=== PATIENT | female | born 1995 | race Caucasian/White ===

== ENCOUNTER 2017-03-31 10:42 | Inpatient (IN) | payer BC ==
[2017-03-31] MEDS ORDERED: Carboprost Tromethamine 250 MCG/1 ML Amp IM PRN (12:23)
[2017-03-31] MEDS ORDERED: Nalbuphine 10 MG/1 ML Vial IVPUSH PRN (12:23)
[2017-03-31] MEDS ORDERED: Water For Irrigation,Sterile 1,000 ML Container IRR PRN (12:23)
[2017-03-31] MEDS ORDERED: Methylergonovine 0.2 MG/1 ML Amp IM PRN (12:23)
[2017-03-31] MEDS ORDERED: Butorphanol 1 MG/ML SDV IVPUSH PRN (12:23)
[2017-03-31] MEDS ORDERED: Sodium Chloride 0.9% 2.5 ML Syringe FLUSH PRN (12:23)
[2017-03-31] MEDS ORDERED: Lidocaine 1% 50 ML MDV INJECT PRN (12:23)
[2017-03-31] MEDS ORDERED: Sodium Chloride 0.9% 10 ML Syringe FLUSH PRN (12:23)
[2017-03-31] MEDS ORDERED: Misoprostol 200 MCG Tab PO PRN (12:23)
[2017-03-31] MEDS ORDERED: Oxytocin/Lactated Ringers 30 UNIT/500 ML BAG IV SCH ×2 (12:30→18:00)
[2017-03-31] MEDS ORDERED: Ampicillin 2 GM in Sodium Chloride 0.9% 100 ML IV ONE (12:30)
[2017-03-31] MEDS: Lactated Ringers 1,000 ML IV SCH ×4 (13:13→22:56)
[2017-03-31] MEDS: Ampicillin 1 GM in Sodium Chloride 0.9% 50 ML IV SCH ×2 (17:19→21:23)
[2017-03-31] MEDS ORDERED: fentaNYL 100 MCG/2 ML SDV ONE (20:49)
[2017-03-31] MEDS ORDERED: Ropivacaine 0.2% 2 MG/ML 20 ML SDV ONE (20:50)
--- NOTE | 2017-03-31 21:29 | PCM.PREANE ---
Preanesthetic Assessment - Anesthesia/Transfusion/Family Hx Anesthesia History: No Prior Anesthesia Family History of Anesthesia Reaction: No Transfusion History: No Prior Transfusion(s) - Review of Systems General: No Symptoms Pulmonary: No Symptoms Cardiovascular: No Symptoms Gastrointestinal: No Symptoms Neurological: No Symptoms Other: Reports: None - Physical Assessment Pulse: 104 O2 Sat by Pulse Oximetry: 99 Respiratory Rate: 24 Blood Pressure: 111/78 Height: 5 ft 5 in Weight: 71.668 kg ASA Class: 2 Mental Status: Alert & Oriented x3 Airway Class: Mallampati = 1 Dentition: Reports: Normal Dentition Thyro-Mental Finger Breadths: 3 ROM/Head Extension: Full Lungs: Clear to Auscultation, Normal Respiratory Effort Cardiovascular: Regular Rate, Regular Rhythm - Lab Values: Laboratory Last Values WBC 15.76 K/uL (4.0-11.0) H 03/31/17 12:39 RBC 3.99 M/uL (4.30-5.90) L 03/31/17 12:39 Hgb 13.1 g/dL (12.0-16.0) 03/31/17 12:39 Hct 37.1 % (36.0-46.0) 03/31/17 12:39 MCV 93.0 fL (80.0-98.0) 03/31/17 12:39 MCH 32.8 pg (27.0-32.0) H 03/31/17 12:39 MCHC 35.3 g/dL (31.0-37.0) 03/31/17 12:39 RDW Std Deviation 45.2 fl (28.0-62.0) 03/31/17 12:39 RDW Coeff of Issac 13 % (11.0-15.0) 03/31/17 12:39 Plt Count 285 K/uL (150-400) 03/31/17 12:39 MPV 10.90 fL (7.40-12.00) 03/31/17 12:39 Nucleated RBC % 0.0 /100WBC 03/31/17 12:39 Nucleated RBCs # 0 K/uL 03/31/17 12:39 Blood Type O POSITIVE 03/31/17 12:39 Antibody Screen NEGATIVE 03/31/17 12:39 - Allergies Allergies/Adverse Reactions: Allergies Allergy/AdvReac Type Severity Reaction Status Date / Time clarithromycin [From Biaxin] Allergy Rash Verified 03/31/17 12:22 - Blood Blood Available: No - Acknowledgements Anesthesia Type Planned: Epidural Pt an Appropriate Candidate for the Planned Anesthesia: Yes Alternatives and Risks of Anesthesia Discussed w Pt/Guardian: Yes Pt/Guardian Understands and Agrees with Anesthesia Plan: Yes PreAnesthesia Questionnaire [employer] History: Reports: - SUBSTANCE USE Smoking Status *Q: Never Smoker Second Hand Smoke Exposure: No Recreational Drug Use History: No - CURRENT (IN HOUSE) MEDS Current Meds: Current Medications Butorphanol Tartrate (Stadol) 1 mg IVPUSH Q1H PRN PRN Reason: Pain Carboprost Tromethamine (Hemabate Ds) 250 mcg IM ASDIRECTED PRN PRN Reason: Post Hemorrhage Ampicillin Sodium 1 gm/ Sodium (Chloride) 50 mls @ 100 mls/hr IV Q4H [facility]I Last Admin: 03/31/17 21:23 Dose: 100 mls/hr Lactated Ringer's (Ringers, Lactated) 1,000 mls @ 150 mls/hr IV ASDIRECTED ZI Last Admin: 03/31/17 21:13 Dose: 150 mls/hr Oxytocin/Lactated Ringer's (Pitocin In Lr 30 Units/500 Ml) 30 unit in 500 mls @ 2 mls/hr IV TITRATE ZI; 2 MUNITS/MIN PRN Reason: Protocol Last Titration: 03/31/17 20:12 Dose: 4 munits/min, 4 mls/hr Lidocaine HCl (Xylocaine 1%) 50 ml INJECT .ONCE PRN PRN Reason: Laceration repair Methylergonovine Maleate (Methergine) 0.2 mg IM ASDIRECTED PRN PRN Reason: Post Hemorrhage Misoprostol (Cytotec) 200 mcg PO .ONCE PRN PRN Reason: Post Hemorrhage Nalbuphine HCl (Nubain) 10 mg IVPUSH Q1H PRN PRN Reason: Pain (severe 7-10) Sodium Chloride (Saline Flush) 10 ml FLUSH ASDIRECTED PRN PRN Reason: Keep Vein Open Sodium Chloride (Saline Flush) 2.5 ml FLUSH ASDIRECTED PRN PRN Reason: Keep Vein Open Sterile Water (Sterile Water For Irrigation) 1,000 ml IRR ASDIRECTED PRN PRN Reason: delivery Discontinued Medications Fentanyl (Sublimaze) Confirm Administered Dose 100 mcg .ROUTE .STK-MED ONE Stop: 03/31/17 20:50 Last Admin: 03/31/17 21:11 Dose: 100 mcg Ampicillin Sodium 2 gm/ Sodium (Chloride) 100 mls @ 200 mls/hr IV ONETIME ONE Stop: 03/31/17 12:59 Last Admin: 03/31/17 13:13 Dose: 200 mls/hr Oxytocin/Lactated Ringer's (Pitocin In Lr 30 Units/500 Ml) 30 unit in 500 mls @ 999 mls/hr IV TITRATE ZI PRN Reason: 999 MUNITS/MIN Stop: 03/31/17 13:01 Ropivacaine/Fentanyl/NS (Fentanyl 2 Mcg-Ropiv 0.2%-Ns) Confirm Administered Dose 100 mls @ as directed .ROUTE .STK-MED ONE Stop: 03/31/17 20:50 Ropivacaine (Naropin 0.2%) Confirm Administered Dose 20 ml .ROUTE .STK-MED ONE Stop: 03/31/17 20:51 Last Admin: 03/31/17 21:12 Dose: 10 ml
[2017-04-01] MEDS ORDERED: Lanolin 100% Cream 7 GM Tube TOP PRN (01:16)
[2017-04-01] MEDS ORDERED: Bisacodyl 10 MG Supp RECTAL PRN (01:16)
[2017-04-01] MEDS ORDERED: Benzocaine/Menthol 20%-0.5% Spray 78 GM Cannister TOP PRN (01:16)
[2017-04-01] MEDS ORDERED: Witch Hazel Medicated Pads 40/Jar TOP PRN (01:16)
[2017-04-01] MEDS ORDERED: Methylergonovine 0.2 MG/1 ML Amp IM PRN (01:16)
[2017-04-01] MEDS ORDERED: oxyCODONE 5 MG Tab PO PRN (01:16)
--- NOTE | 2017-04-01 01:46 | OR ---
SURGEON: Summer Dalton M.D. DATE OF PROCEDURE: 04/01/2017 PREOPERATIVE DIAGNOSES: A 40 and 3/7th-week intrauterine , active spontaneous labor. POSTOPERATIVE DIAGNOSES: A 40 and 3/7th-week intrauterine , active spontaneous labor. PROCEDURE PERFORMED: Pitocin augmentation, term spontaneous vaginal delivery with repair of second- degree laceration. ANESTHESIA: Epidural. ESTIMATED BLOOD LOSS: Less than 300 mL. FINDINGS: Live born female, score 8 and 9. Weight is pending at the time of dictation. Placenta spontaneous, Schultze intact with 3 vessels. Second-degree perineal laceration repaired. COMPLICATIONS: None known. DISPOSITION: Mother and baby are in LDRP in good condition. INDICATIONS: This is a 22-year-old female G1, P0. She presented at 40 and 3/7th weeks' gestation in active spontaneous labor. She progressed to 4 cm dilatation with slow progress thereafter, therefore, Pitocin augmentation was initiated up to a maximum of 6 milliunits per minute. She had received 3 doses of ampicillin for group B strep prophylaxis. At this point, she was 5 to 6 cm dilated. Artificial rupture of membranes was performed, clear fluid was noted. Within 2 hours, she was complete. DESCRIPTION OF PROCEDURE: With the patient in dorsal lithotomy position, the patient pushed over 3 contractions to a 5+ station, at which time the head was delivered spontaneously and atraumatically over the perineum with support with subsequent delivery of the infant's shoulders and body without any difficulty. The infant was handed to the mother in the presence of the nurse attending delivery. The is a liveborn female, score 8 and 9. Weight is pending at the time of this dictation. After the cord had ceased to pulsate, it was doubly clamped and cut. Cord blood was collected for cord ABGs as well as routine cord blood sampling. After the delivery of the , Pitocin was initiated to assist with delivery of the placenta, which was delivered spontaneously, Schultze intact with 3 vessels. Upon inspection of the pelvis and perineum, there were no periurethral, vaginal sidewall, cervical, or rectal lacerations. There was a small second-degree perineal laceration, which was repaired using 2-0 Caprosyn for the vaginal mucosa in a running locked fashion, a single deep stitch on the perineum to reapproximate the deep tissue, and subcuticular sutures using the 3- 0 Caprosyn to reapproximate the skin. Final sponge, needle, and instrument count were correct. There were no known complications. The and mother remained in LDRP in good condition. Sponge, needle, and instrument count were correct. MERLE HARRISON /[id number]
[2017-04-01] MEDS: Ibuprofen 800 MG Tab PO PRN ×3 (04:06→19:42)
[2017-04-01] MEDS: Docusate Sodium 100 MG Cap PO PRN (07:42)
--- NOTE | 2017-04-01 08:42 | PCM.PNPP ---
<Meliza Haas - Last Filed: 04/01/17 08:40> - General Info Date of Service: 04/01/17 Functional Status: Reports: Pain Controlled, Tolerating Diet, Ambulating, Urinating - Review of Systems General: Denies: Fever, Weakness, Fatigue Pulmonary: Denies: Shortness of Breath, Pleuritic Chest Pain, Cough Cardiovascular: Denies: Chest Pain, Palpitations, Dyspnea on Exertion Gastrointestinal: Denies: Abdominal Pain Genitourinary: Denies: Dysuria Psychiatric: Reports: No Symptoms - General Info Date of Service: 04/01/17 - Patient Data Vital Signs - Most Recent: Last Vital Signs Temp 36.3 C 04/01/17 08:00 Pulse 78 04/01/17 08:00 Resp 17 04/01/17 08:00 BP 117/59 L 04/01/17 08:00 Pulse Ox 96 04/01/17 08:00 Weight - Most Recent: 71.668 kg Lab Results - Last 24 Hours: Laboratory Results - last 24 hr 03/31/17 03/31/17 Range/Units 12:39 12:39 WBC 15.76 H (4.0-11.0) K/uL RBC 3.99 L (4.30-5.90) M/uL Hgb 13.1 (12.0-16.0) g/dL Hct 37.1 (36.0-46.0) % MCV 93.0 (80.0-98.0) fL MCH 32.8 H (27.0-32.0) pg MCHC 35.3 (31.0-37.0) g/dL RDW Std Deviation 45.2 (28.0-62.0) fl RDW Coeff of Issac 13 (11.0-15.0) % Plt Count 285 (150-400) K/uL MPV 10.90 (7.40-12.00) fL Nucleated RBC % 0.0 /100WBC Nucleated RBCs # 0 K/uL Blood Type O POSITIVE Antibody Screen NEGATIVE Med Orders - Current: Current Medications Acetaminophen (Tylenol Extra Strength) 1,000 mg PO Q4H PRN PRN Reason: Pain Benzocaine/Menthol (Dermoplast Pain Relief 20%-0.5% [place]) 78 gm TOP ASDIRECTED PRN PRN Reason: Perineal Comfort Measure Bisacodyl (Dulcolax) 10 mg RECTAL .ONCE PRN PRN Reason: Constipation Docusate Sodium (Colace) 100 mg PO BID PRN PRN Reason: Constipation Last Admin: 04/01/17 07:42 Dose: 100 mg Emollient Ointment (Lansinoh Hpa) 0 gm TOP ASDIRECTED PRN PRN Reason: Sore Nipples Ibuprofen (Motrin) 800 mg PO Q6H PRN PRN Reason: Pain Last Admin: 04/01/17 04:06 Dose: 800 mg Methylergonovine Maleate (Methergine) 0.2 mg IM .ONCE PRN PRN Reason: Excessive Vaginal Bleeding Oxycodone HCl (Oxycodone) 5 mg PO Q2H PRN PRN Reason: Pain Last Admin: 04/01/17 07:45 Dose: 5 mg Witch Hiral (Tucks) 1 pad TOP ASDIRECTED PRN PRN Reason: comfort care Discontinued Medications Butorphanol Tartrate (Stadol) 1 mg IVPUSH Q1H PRN PRN Reason: Pain Carboprost Tromethamine (Hemabate Ds) 250 mcg IM ASDIRECTED PRN PRN Reason: Post Hemorrhage Fentanyl (Sublimaze) Confirm Administered Dose 100 mcg .ROUTE .STK-MED ONE Stop: 03/31/17 20:50 Last Admin: 03/31/17 21:11 Dose: 100 mcg Ampicillin Sodium 2 gm/ Sodium (Chloride) 100 mls @ 200 mls/hr IV ONETIME ONE Stop: 03/31/17 12:59 Last Admin: 03/31/17 13:13 Dose: 200 mls/hr Ampicillin Sodium 1 gm/ Sodium (Chloride) 50 mls @ 100 mls/hr IV Q4H [facility] Last Admin: 03/31/17 21:23 Dose: 100 mls/hr Lactated Ringer's (Ringers, Lactated) 1,000 mls @ 150 mls/hr IV ASDIRECTED [facility] Last Admin: 03/31/17 22:56 Dose: 150 mls/hr Oxytocin/Lactated Ringer's (Pitocin In Lr 30 Units/500 Ml) 30 unit in 500 mls @ 999 mls/hr IV TITRATE [facility] PRN Reason: 999 MUNITS/MIN Stop: 03/31/17 13:01 Oxytocin/Lactated Ringer's (Pitocin In Lr 30 Units/500 Ml) 30 unit in 500 mls @ 2 mls/hr IV TITRATE ZI; 2 MUNITS/MIN PRN Reason: Protocol Last Titration: 03/31/17 21:35 Dose: 6 munits/min, 6 mls/hr Ropivacaine/Fentanyl/NS (Fentanyl 2 Mcg-Ropiv 0.2%-Ns) Confirm Administered Dose 100 mls @ as directed .ROUTE .[email or web address] ONE Stop: 03/31/17 20:50 Lidocaine HCl (Xylocaine 1%) 50 ml INJECT .ONCE PRN PRN Reason: Laceration repair Methylergonovine Maleate (Methergine) 0.2 mg IM ASDIRECTED PRN PRN Reason: Post Hemorrhage Misoprostol (Cytotec) 200 mcg PO .ONCE PRN PRN Reason: Post Hemorrhage Nalbuphine HCl (Nubain) 10 mg IVPUSH Q1H PRN PRN Reason: Pain (severe 7-10) Ropivacaine (Naropin 0.2%) Confirm Administered Dose 20 ml .ROUTE .[employer] ONE Stop: 03/31/17 20:51 Last Admin: 03/31/17 21:12 Dose: 10 ml Sodium Chloride (Saline Flush) 10 ml FLUSH ASDIRECTED PRN PRN Reason: Keep Vein Open Sodium Chloride (Saline Flush) 2.5 ml FLUSH ASDIRECTED PRN PRN Reason: Keep Vein Open Sterile Water (Sterile Water For Irrigation) 1,000 ml IRR ASDIRECTED PRN PRN Reason: delivery - Infant Interaction Infant Disposition, : [place] in Room with Family Infant Feeding: Attempted ; Nursed Fair/Poor Support Person: - Recovery Exam Fundal Tone: Firm Fundal Level: 2 Fingerbreadths Above Umbilicus Fundal Placement: Right Lochia Amount: Small Lochia Color: Rubra/Red Episiotomy/Laceration: Approximated Bladder Status: Voiding Urinary Elimination: Voided - Exam General: Alert, Oriented Lungs: Clear to Auscultation, Normal Respiratory Effort Cardiovascular: Regular Rate, Regular Rhythm GI/Abdominal Exam: Normal Bowel Sounds, Soft, Non-Tender, No Organomegaly, No Distention, No Abnormal Bruit, No Mass, Pelvis Stable Psy/Mental Status: Alert, Normal Affect, Normal Mood - Problem List & Annotations (1) Vaginal delivery SNOMED Code(s): 074805230 Code(s): O80 - ENCOUNTER FOR FULL-TERM UNCOMPLICATED DELIVERY Status: Acute Current Visit: Yes - Problem List Review Problem List Initiated/Reviewed/Updated: Yes - Assessment Assessment:: PPD #0 from . Rest and relax today. Work on breast feeding. - Plan Plan:: Continue routine post cares. Anticipate discharge home tomorrow. <Damian Adam - Last Filed: 04/01/17 13:03> - Patient Data Vital Signs - Most Recent: Last Vital Signs Temp 36.3 C 04/01/17 08:00 Pulse 78 04/01/17 08:00 Resp 17 04/01/17 08:00 BP 117/59 L 04/01/17 08:00 Pulse Ox 96 04/01/17 08:00 Lab Results - Last 24 Hours: Laboratory Results - last 24 hr 03/31/17 03/31/17 Range/Units 12:39 12:39 WBC 15.76 H (4.0-11.0) K/uL RBC 3.99 L (4.30-5.90) M/uL Hgb 13.1 (12.0-16.0) g/dL Hct 37.1 (36.0-46.0) % MCV 93.0 (80.0-98.0) fL MCH 32.8 H (27.0-32.0) pg MCHC 35.3 (31.0-37.0) g/dL RDW Std Deviation 45.2 (28.0-62.0) fl RDW Coeff of Issac 13 (11.0-15.0) % Plt Count 285 (150-400) K/uL MPV 10.90 (7.40-12.00) fL Nucleated RBC % 0.0 /100WBC Nucleated RBCs # 0 K/uL Blood Type O POSITIVE Antibody Screen NEGATIVE Med Orders - Current: Current Medications Acetaminophen (Tylenol Extra Strength) 1,000 mg PO Q4H PRN PRN Reason: Pain Last Admin: 04/01/17 09:38 Dose: 1,000 mg Benzocaine/Menthol (Dermoplast Pain Relief 20%-0.5% [place]) 78 gm TOP ASDIRECTED PRN PRN Reason: Perineal Comfort Measure Last Admin: 04/01/17 09:32 Dose: 1 canister Bisacodyl (Dulcolax) 10 mg RECTAL .ONCE PRN PRN Reason: Constipation Docusate Sodium (Colace) 100 mg PO BID PRN PRN Reason: Constipation Last Admin: 04/01/17 07:42 Dose: 100 mg Emollient Ointment (Lansinoh Hpa) 0 gm TOP ASDIRECTED PRN PRN Reason: Sore Nipples Ibuprofen (Motrin) 800 mg PO Q6H PRN PRN Reason: Pain Last Admin: 04/01/17 04:06 Dose: 800 mg Methylergonovine Maleate (Methergine) 0.2 mg IM .ONCE PRN PRN Reason: Excessive Vaginal Bleeding Oxycodone HCl (Oxycodone) 5 mg PO Q2H PRN PRN Reason: Pain Last Admin: 04/01/17 07:45 Dose: 5 mg Witch Hiral (Tucks) 1 pad TOP ASDIRECTED PRN PRN Reason: comfort care Last Admin: 04/01/17 09:31 Dose: 1 tub Discontinued Medications Butorphanol Tartrate (Stadol) 1 mg IVPUSH Q1H PRN PRN Reason: Pain Carboprost Tromethamine (Hemabate Ds) 250 mcg IM ASDIRECTED PRN PRN Reason: Post Hemorrhage Fentanyl (Sublimaze) Confirm Administered Dose 100 mcg .ROUTE .STK-MED ONE Stop: 03/31/17 20:50 Last Admin: 03/31/17 21:11 Dose: 100 mcg Ampicillin Sodium 2 gm/ Sodium (Chloride) 100 mls @ 200 mls/hr IV ONETIME ONE Stop: 03/31/17 12:59 Last Admin: 03/31/17 13:13 Dose: 200 mls/hr Ampicillin Sodium 1 gm/ Sodium (Chloride) 50 mls @ 100 mls/hr IV Q4H [facility] Last Admin: 03/31/17 21:23 Dose: 100 mls/hr Lactated Ringer's (Ringers, Lactated) 1,000 mls @ 150 mls/hr IV ASDIRECTED [facility] Last Admin: 03/31/17 22:56 Dose: 150 mls/hr Oxytocin/Lactated Ringer's (Pitocin In Lr 30 Units/500 Ml) 30 unit in 500 mls @ 999 mls/hr IV TITRATE [facility] PRN Reason: 999 MUNITS/MIN Stop: 03/31/17 13:01 Oxytocin/Lactated Ringer's (Pitocin In Lr 30 Units/500 Ml) 30 unit in 500 mls @ 2 mls/hr IV TITRATE ZI; 2 MUNITS/MIN PRN Reason: Protocol Last Titration: 03/31/17 21:35 Dose: 6 munits/min, 6 mls/hr Ropivacaine/Fentanyl/NS (Fentanyl 2 Mcg-Ropiv 0.2%-Ns) Confirm Administered Dose 100 mls @ as directed .ROUTE .[employer] ONE Stop: 03/31/17 20:50 Lidocaine HCl (Xylocaine 1%) 50 ml INJECT .ONCE PRN PRN Reason: Laceration repair Methylergonovine Maleate (Methergine) 0.2 mg IM ASDIRECTED PRN PRN Reason: Post Hemorrhage Misoprostol (Cytotec) 200 mcg PO .ONCE PRN PRN Reason: Post Hemorrhage Nalbuphine HCl (Nubain) 10 mg IVPUSH Q1H PRN PRN Reason: Pain (severe 7-10) Ropivacaine (Naropin 0.2%) Confirm Administered Dose 20 ml .ROUTE .[employer] ONE Stop: 03/31/17 20:51 Last Admin: 03/31/17 21:12 Dose: 10 ml Sodium Chloride (Saline Flush) 10 ml FLUSH ASDIRECTED PRN PRN Reason: Keep Vein Open Sodium Chloride (Saline Flush) 2.5 ml FLUSH ASDIRECTED PRN PRN Reason: Keep Vein Open Sterile Water (Sterile Water For Irrigation) 1,000 ml IRR ASDIRECTED PRN PRN Reason: delivery - Plan Plan:: Patient is PPD 0 in stable condition , continue care and discharge tomorrow
--- NOTE | 2017-04-01 09:26 | PCM48HPAN ---
Post Anesthesia Note - EVALUATION WITHIN 48HRS OF ANESTHETIC Vital Signs in Normal Range: Yes Patient Participated in Evaluation: Yes Respiratory Function Stable: Yes Airway Patent: Yes Cardiovascular Function Stable: Yes Hydration Status Stable: Yes Pain Control Satisfactory: Yes Nausea and Vomiting Control Satisfactory: Yes Mental Status Recovered: Yes
[2017-04-01] MEDS: Acetaminophen 500 MG Tab PO PRN (09:38)
[2017-04-01] MEDS: Ampicillin 1 GM in Sodium Chloride 0.9% 50 ML IV SCH (19:33)
[2017-04-02] MEDS: Ibuprofen 800 MG Tab PO PRN ×2 (01:24→09:44)
[2017-04-02] MEDS: Acetaminophen 500 MG Tab PO PRN (05:53)
--- NOTE | 2017-04-02 08:31 | PCM.PNPP ---
<Meliza Haas - Last Filed: 04/02/17 08:28> - General Info Date of Service: 04/02/17 Functional Status: Reports: Pain Controlled, Tolerating Diet, Ambulating, Urinating - Review of Systems General: Denies: Fever, Weakness, Fatigue Pulmonary: Denies: Shortness of Breath, Pleuritic Chest Pain, Cough Cardiovascular: Denies: Chest Pain, Palpitations, Dyspnea on Exertion Gastrointestinal: Denies: Abdominal Pain Genitourinary: Denies: Dysuria Psychiatric: Reports: No Symptoms - General Info Date of Service: 04/02/17 - Patient Data Vital Signs - Most Recent: Last Vital Signs Temp 36.3 C 04/02/17 04:30 Pulse 72 04/02/17 04:30 Resp 16 04/02/17 04:30 BP 100/60 04/02/17 04:30 Pulse Ox 97 04/02/17 04:30 Weight - Most Recent: 158 lb Lab Results - Last 24 Hours: Laboratory Results - last 24 hr 04/02/17 Range/Units 04:56 Hgb 11.0 L (12.0-16.0) g/dL Hct 32.6 L (36.0-46.0) % Med Orders - Current: Current Medications Acetaminophen (Tylenol Extra Strength) 1,000 mg PO Q4H PRN PRN Reason: Pain Last Admin: 04/02/17 05:53 Dose: 1,000 mg Benzocaine/Menthol (Dermoplast Pain Relief 20%-0.5% [place]) 78 gm TOP ASDIRECTED PRN PRN Reason: Perineal Comfort Measure Last Admin: 04/01/17 09:32 Dose: 1 canister Bisacodyl (Dulcolax) 10 mg RECTAL .ONCE PRN PRN Reason: Constipation Docusate Sodium (Colace) 100 mg PO BID PRN PRN Reason: Constipation Last Admin: 04/01/17 07:42 Dose: 100 mg Emollient Ointment (Lansinoh Hpa) 0 gm TOP ASDIRECTED PRN PRN Reason: Sore Nipples Ibuprofen (Motrin) 800 mg PO Q6H PRN PRN Reason: Pain Last Admin: 04/02/17 01:24 Dose: 800 mg Methylergonovine Maleate (Methergine) 0.2 mg IM .ONCE PRN PRN Reason: Excessive Vaginal Bleeding Oxycodone HCl (Oxycodone) 5 mg PO Q2H PRN PRN Reason: Pain Last Admin: 04/01/17 07:45 Dose: 5 mg Witch Hiral (Tucks) 1 pad TOP ASDIRECTED PRN PRN Reason: comfort care Last Admin: 04/01/17 09:31 Dose: 1 tub Discontinued Medications Butorphanol Tartrate (Stadol) 1 mg IVPUSH Q1H PRN PRN Reason: Pain Carboprost Tromethamine (Hemabate Ds) 250 mcg IM ASDIRECTED PRN PRN Reason: Post Hemorrhage Fentanyl (Sublimaze) Confirm Administered Dose 100 mcg .ROUTE .STK-MED ONE Stop: 03/31/17 20:50 Last Admin: 03/31/17 21:11 Dose: 100 mcg Ampicillin Sodium 2 gm/ Sodium (Chloride) 100 mls @ 200 mls/hr IV ONETIME ONE Stop: 03/31/17 12:59 Last Admin: 03/31/17 13:13 Dose: 200 mls/hr Ampicillin Sodium 1 gm/ Sodium (Chloride) 50 mls @ 100 mls/hr IV Q4H ZI Last Admin: 04/01/17 19:33 Dose: Not Given Lactated Ringer's (Ringers, Lactated) 1,000 mls @ 150 mls/hr IV ASDIRECTED ZI Last Admin: 03/31/17 22:56 Dose: 150 mls/hr Oxytocin/Lactated Ringer's (Pitocin In Lr 30 Units/500 Ml) 30 unit in 500 mls @ 999 mls/hr IV TITRATE ZI PRN Reason: 999 MUNITS/MIN Stop: 03/31/17 13:01 Last Admin: 04/01/17 19:32 Dose: Not Given Oxytocin/Lactated Ringer's (Pitocin In Lr 30 Units/500 Ml) 30 unit in 500 mls @ 2 mls/hr IV TITRATE ZI; 2 MUNITS/MIN PRN Reason: Protocol Last Titration: 03/31/17 21:35 Dose: 6 munits/min, 6 mls/hr Ropivacaine/Fentanyl/NS (Fentanyl 2 Mcg-Ropiv 0.2%-Ns) Confirm Administered Dose 100 mls @ as directed .ROUTE .STK-MED ONE Stop: 03/31/17 20:50 Last Admin: 04/01/17 19:33 Dose: Not Given Lidocaine HCl (Xylocaine 1%) 50 ml INJECT .ONCE PRN PRN Reason: Laceration repair Methylergonovine Maleate (Methergine) 0.2 mg IM ASDIRECTED PRN PRN Reason: Post Hemorrhage Misoprostol (Cytotec) 200 mcg PO .ONCE PRN PRN Reason: Post Hemorrhage Nalbuphine HCl (Nubain) 10 mg IVPUSH Q1H PRN PRN Reason: Pain (severe 7-10) Ropivacaine (Naropin 0.2%) Confirm Administered Dose 20 ml .ROUTE .[employer] ONE Stop: 03/31/17 20:51 Last Admin: 03/31/17 21:12 Dose: 10 ml Sodium Chloride (Saline Flush) 10 ml FLUSH ASDIRECTED PRN PRN Reason: Keep Vein Open Sodium Chloride (Saline Flush) 2.5 ml FLUSH ASDIRECTED PRN PRN Reason: Keep Vein Open Sterile Water (Sterile Water For Irrigation) 1,000 ml IRR ASDIRECTED PRN PRN Reason: delivery - Infant Interaction Disposition, : in Room with Family Feeding: Attempted ; Nursed Fair/Poor Support Person: - Recovery Exam Fundal Tone: Firm Fundal Level: 1 Fingerbreadths Below Umbilicus Fundal Placement: Midline Lochia Amount: Scant Lochia Color: Rubra/Red Episiotomy/Laceration: Approximated Bladder Status: Voiding Urinary Elimination: Voided - Exam General: Alert, Oriented Lungs: Clear to Auscultation, Normal Respiratory Effort Cardiovascular: Regular Rate, Regular Rhythm GI/Abdominal Exam: Normal Bowel Sounds, Soft, Non-Tender, No Organomegaly, No Distention, No Abnormal Bruit, No Mass, Pelvis Stable Psy/Mental Status: Alert, Normal Affect, Normal Mood - Problem List & Annotations (1) Vaginal delivery SNOMED Code(s): 062844239 Code(s): O80 - ENCOUNTER FOR FULL-TERM UNCOMPLICATED DELIVERY Status: Acute Current Visit: Yes - Problem List Review Problem List Initiated/Reviewed/Updated: Yes - Assessment Assessment:: PPD #1 from . minimal pain and lochia. Discharge home today. - Plan Plan:: Discharge home today. Nothing in the vagina for 6 weeks. Continue PNV while breast feeding. Can use OTC ibuprofen/tylenol as needed. Continue PNV while breast feeding. Instructed patient to call if she develops fever greater than 101 or bleeding through a large pad an hour. F/U with [facility] in 6 weeks. <Salma Miller - Last Filed: 04/02/17 12:04> - Patient Data Vital Signs - Most Recent: Last Vital Signs Temp 36.6 C 04/02/17 08:20 Pulse 72 04/02/17 04:30 Resp 16 04/02/17 08:20 BP 106/58 L 04/02/17 08:20 Pulse Ox 98 04/02/17 08:20 Lab Results - Last 24 Hours: Laboratory Results - last 24 hr 04/02/17 Range/Units 04:56 Hgb 11.0 L (12.0-16.0) g/dL Hct 32.6 L (36.0-46.0) % Med Orders - Current: Current Medications Acetaminophen (Tylenol Extra Strength) 1,000 mg PO Q4H PRN PRN Reason: Pain Last Admin: 04/02/17 05:53 Dose: 1,000 mg Benzocaine/Menthol (Dermoplast Pain Relief 20%-0.5% [place]) 78 gm TOP ASDIRECTED PRN PRN Reason: Perineal Comfort Measure Last Admin: 04/01/17 09:32 Dose: 1 canister Bisacodyl (Dulcolax) 10 mg RECTAL .ONCE PRN PRN Reason: Constipation Docusate Sodium (Colace) 100 mg PO BID PRN PRN Reason: Constipation Last Admin: 04/02/17 09:47 Dose: 100 mg Emollient Ointment (Lansinoh Hpa) 0 gm TOP ASDIRECTED PRN PRN Reason: Sore Nipples Ibuprofen (Motrin) 800 mg PO Q6H PRN PRN Reason: Pain Last Admin: 04/02/17 09:44 Dose: 800 mg Methylergonovine Maleate (Methergine) 0.2 mg IM .ONCE PRN PRN Reason: Excessive Vaginal Bleeding Oxycodone HCl (Oxycodone) 5 mg PO Q2H PRN PRN Reason: Pain Last Admin: 04/01/17 07:45 Dose: 5 mg Witch Hiral (Tucks) 1 pad TOP ASDIRECTED PRN PRN Reason: comfort care Last Admin: 04/01/17 09:31 Dose: 1 tub Discontinued Medications Butorphanol Tartrate (Stadol) 1 mg IVPUSH Q1H PRN PRN Reason: Pain Carboprost Tromethamine (Hemabate Ds) 250 mcg IM ASDIRECTED PRN PRN Reason: Post Hemorrhage Fentanyl (Sublimaze) Confirm Administered Dose 100 mcg .ROUTE .STK-MED ONE Stop: 03/31/17 20:50 Last Admin: 03/31/17 21:11 Dose: 100 mcg Ampicillin Sodium 2 gm/ Sodium (Chloride) 100 mls @ 200 mls/hr IV ONETIME ONE Stop: 03/31/17 12:59 Last Admin: 03/31/17 13:13 Dose: 200 mls/hr Ampicillin Sodium 1 gm/ Sodium (Chloride) 50 mls @ 100 mls/hr IV Q4H ZI Last Admin: 04/01/17 19:33 Dose: Not Given Lactated Ringer's (Ringers, Lactated) 1,000 mls @ 150 mls/hr IV ASDIRECTED ZI Last Admin: 03/31/17 22:56 Dose: 150 mls/hr Oxytocin/Lactated Ringer's (Pitocin In Lr 30 Units/500 Ml) 30 unit in 500 mls @ 999 mls/hr IV TITRATE ZI PRN Reason: 999 MUNITS/MIN Stop: 03/31/17 13:01 Last Admin: 04/01/17 19:32 Dose: Not Given Oxytocin/Lactated Ringer's (Pitocin In Lr 30 Units/500 Ml) 30 unit in 500 mls @ 2 mls/hr IV TITRATE ZI; 2 MUNITS/MIN PRN Reason: Protocol Last Titration: 03/31/17 21:35 Dose: 6 munits/min, 6 mls/hr Ropivacaine/Fentanyl/NS (Fentanyl 2 Mcg-Ropiv 0.2%-Ns) Confirm Administered Dose 100 mls @ as directed .ROUTE .STK-MED ONE Stop: 03/31/17 20:50 Last Admin: 04/01/17 19:33 Dose: Not Given Lidocaine HCl (Xylocaine 1%) 50 ml INJECT .ONCE PRN PRN Reason: Laceration repair Methylergonovine Maleate (Methergine) 0.2 mg IM ASDIRECTED PRN PRN Reason: Post Hemorrhage Misoprostol (Cytotec) 200 mcg PO .ONCE PRN PRN Reason: Post Hemorrhage Nalbuphine HCl (Nubain) 10 mg IVPUSH Q1H PRN PRN Reason: Pain (severe 7-10) Ropivacaine (Naropin 0.2%) Confirm Administered Dose 20 ml .ROUTE .STK-MED ONE Stop: 03/31/17 20:51 Last Admin: 03/31/17 21:12 Dose: 10 ml Sodium Chloride (Saline Flush) 10 ml FLUSH ASDIRECTED PRN PRN Reason: Keep Vein Open Sodium Chloride (Saline Flush) 2.5 ml FLUSH ASDIRECTED PRN PRN Reason: Keep Vein Open Sterile Water (Sterile Water For Irrigation) 1,000 ml IRR ASDIRECTED PRN PRN Reason: delivery - Infant Interaction Infant Feeding: Continues to Breastfeed, Encouraged to Breastfeed - Assessment Assessment:: Agree with above - Plan Plan:: Agree with above. Discharge instructions reviewed with patient as above, Follow up in the clinic in 6 weeks
[2017-04-02 08:59] VITALS: BP 106/58
[2017-04-02] MEDS: Docusate Sodium 100 MG Cap PO PRN (09:47)
== END 2017-04-02 13:45 | disposition home or self-care (01) | DRG 560 ==
LOC: MW.OBCHECK 10:42 → MW.OB 12:23 → OBSVTOIN 04-01 00:52
PROVIDERS: ADMIT Obstetrics & Gynecology; ATTEND Obstetrics & Gynecology
PROC: 10E0XZZ Delivery of Products of Conception, External Approach (ICD-10-PCS; principal; 2017-04-01)
PROC: 0KQM0ZZ Repair Perineum Muscle, Open Approach (ICD-10-PCS; 2017-04-01)
DX: O70.1 Second degree perineal laceration during delivery (principal); Z3A.40 40 weeks gestation of pregnancy; Z37.0 Single live birth
CPT/HCPCS: 36415; 59025; 85014; 85018; 85027; 86850; 86900; 86901; A9270-GY; J0290; J2795; J3010; J7030; J7050; J7120